=== PATIENT | female | born 1945 | race Caucasian/White ===

== ENCOUNTER 2019-01-09 15:14 | Emergency (ER) | payer MEDICARE, OTHER ==
[~2019-01-09] VITALS: Ht 165.1 cm; Wt 51.4 kg
[~2019-01-09 15:14] MED LIST: ATOR10TA87 PO; CALCIUM PO; CLOP75TA35 PO; CYAN-19 PO; DENO60DI SQ; DICL50TA6 PO; HYDR-4353 PO; IRBE150T51 PO; MEGA RED PO; METO100T7 PO
[2019-01-09 15:37] VITALS: BP 183/69
== END 2019-01-09 16:09 | disposition home or self-care (01) ==
LOC: ER 15:15
DX: S81.812D Laceration without foreign body, left lower leg, subsequent encounter (principal); Z48.00 Encounter for change or removal of nonsurgical wound dressing; Z79.899 Other long term (current) drug therapy; X58.XXXD Exposure to other specified factors, subsequent encounter
CPT/HCPCS: 99281; 99282

== ENCOUNTER 2020-01-29 05:58 | Day surgery (SDC) | payer MEDICARE, OTHER ==
[2020-01-28 10:34] LABS: BASOPHILS % (AUTO) 0.3 % (0-1); EOSINOPHILS # (AUTO) 0.3 X10'3 (0-0.9); EOSINOPHILS % (AUTO) 4.6 % (0-6); HEMATOCRIT 36.6 % (35.0-45.0); HEMOGLOBIN 12.3 g/dl (12.0-16.0); LYMPHOCYTES # (AUTO) 1.7 X10'3 (1.1-4.8); LYMPHOCYTES % (AUTO) 30.3 % (21-51); MEAN CORPUSCULAR HEMOGLOBIN 31.2 PG (27.0-31.0); MEAN CORPUSCULAR HGB CONC 33.6 g/dL (33.0-36.5); MEAN CORPUSCULAR VOLUME 92.8 FL (78-98); MONOCYTES # (AUTO) 0.7 X10'3 (0-0.9); MONOCYTES % (AUTO) 13.1 % (2-12); NEUTROPHILS # (AUTO) 2.9 X10'3 (1.8-7.7); NEUTROPHILS % (AUTO) 51.7 % (42-75); PLATELET COUNT 248 X10'3 (140-440); RED BLOOD COUNT 3.95 X10'6 (4.20-5.60); RED CELL DISTRIBUTION WIDTH 13.4 % (11.5-14.5); WHITE BLOOD COUNT 5.5 X10'3 (4.5-11.0)
[2020-01-28 10:42] LABS: ALBUMIN 3.9 G/DL (3.4-5.0); ANION GAP 10 (8-16); BLOOD UREA NITROGEN 15 MG/DL (7-18); BUN/CREATININE RATIO 18.3 (6.6-38.0); CALCIUM 8.8 MG/DL (8.5-10.1); CHLORIDE 103 MMOL/L (99-107); CREATININE 0.82 MG/DL (0.40-0.90); GLUCOSE 93 MG/DL (70-104); MAGNESIUM 1.9 MG/DL (1.5-2.4); POTASSIUM 3.8 MMOL/L (3.5-5.1); SODIUM 137 MMOL/L (135-145); eGFR 68 ML/MIN
[2020-01-28 10:46] LABS: PARTIAL THROMBOPLASTIN TIME 24 SECONDS (22-32)
[2020-01-29] VITALS (11 sets, daily range): BP systolic 107–160; BP diastolic 55–85
[~2020-01-29] VITALS: Ht 160 cm; Wt 52.1 kg
[~2020-01-29 05:58] MED LIST changes: -CYAN-19 PO; +CYAN-51 PO
[2020-01-29] MEDS ORDERED: ceFAZolin 2gm in dextrose, iso 50 ML IV ONE (06:10)
[2020-01-29] MEDS ORDERED: normal saline 1000ml 1,000 ML IV SCH (06:10)
[2020-01-29] MEDS ORDERED: DABI150C PO (06:33)
[2020-01-29] MEDS ORDERED: OMEP40CA13 PO (06:33)
[2020-01-29] MEDS ORDERED: LOSA100T57 PO (06:33)
[2020-01-29] MEDS ORDERED: midazolam 2 mg/2 ml injection ONE (07:38)
[2020-01-29] MEDS ORDERED: fentaNYL/PF 50MCG/1 ML 2ML syringe ONE (07:39)
[2020-01-29] MEDS ORDERED: ceFAZolin 1000mg inj ONE (07:39)
[2020-01-29] MEDS ORDERED: LIDOcaine 1% W/epiNEPHrine 1:100,000 20ml vial ONE ×2 (07:39→08:16)
[2020-01-29] MEDS ORDERED: iohexol 350 MG/ML 50ML vial IV ONE (08:21)
[2020-01-29] MEDS ORDERED: verapamil 2.5 mg/ml inj IV ONE (08:31)
[2020-01-29] MEDS ORDERED: HYDROcodone/acetaminophen 10/325mg tab PO PRN (09:55)
[2020-01-29] MEDS ORDERED: HYDROcodone/acetaminophen 5mg/325mg tablet PO PRN (09:55)
[2020-01-29] MEDS ORDERED: VANCOMYCIN 1000 MG IV ONE (11:00)
[2020-01-29] MEDS ORDERED: SODIUM CHLORIDE IV ONE (11:00)
--- NOTE | 2020-01-29 11:02 | NUR ---
pt left floor for cxr.
--- NOTE | 2020-01-29 11:11 | NUR ---
Pt returned from CXR. pt complaint of pain 02/10. as she motions to rt shoulder. will bring pain medication as ordered.
== END 2020-01-29 15:10 | disposition home or self-care (01) ==
LOC: SSTAY O 05:58
PROVIDERS: ATTEND Internal Medicine Cardiovascular Disease
DX: I49.5 Sick sinus syndrome (principal); I10 Essential (primary) hypertension; E78.5 Hyperlipidemia, unspecified; I48.0 Paroxysmal atrial fibrillation; F32.9 Major depressive disorder, single episode, unspecified; F41.9 Anxiety disorder, unspecified; I25.10 Atherosclerotic heart disease of native coronary artery without angina pectoris; I34.0 Nonrheumatic mitral (valve) insufficiency; Z86.73 Personal history of transient ischemic attack (TIA), and cerebral infarction without residual deficits; G47.9 Sleep disorder, unspecified; Z79.899 Other long term (current) drug therapy; Z98.890 Other specified postprocedural states; Z90.710 Acquired absence of both cervix and uterus; Z87.891 Personal history of nicotine dependence
CPT/HCPCS: 33208; 36415; 71046; 80048; 83735; 85025; 85610; 85730; 93005; 99152; 99153; C1785; C1894; C1898; J0690; J2250; J3010; J3370; J7030; J7050; Q9967; A4565; A4620; A6258; A6449

== ENCOUNTER 2020-10-06 10:15 | Outpatient (CLI) | payer MEDICARE, OTHER ==
[~2020-10-06 10:15] MED LIST changes: -CLOP75TA35 PO; +DABI150C PO; -DICL50TA6 PO; -IRBE150T51 PO; +LOSA100T57 PO; +OMEP40CA13 PO
== END 2020-10-06 23:59 | disposition home or self-care (01) ==
LOC: RT 10:15
PROVIDERS: ATTEND Physician Assistant
DX: R06.02 Shortness of breath (principal)
CPT/HCPCS: 94010; 94727; 94729

== ENCOUNTER 2024-03-10 07:43 | Day surgery (SDC) | payer MEDICARE, OTHER ==
[2024-03-07 11:12] LABS: BASOPHILS # (AUTO) 0.1 X10'3 (0-0.2); BASOPHILS % (AUTO) 1.1 % (0-1); EOSINOPHILS % (AUTO) 0 % (0-6); LYMPHOCYTES # (AUTO) 1.4 X10'3 (1.1-4.8); LYMPHOCYTES % (AUTO) 21.9 % (21-51); MEAN CORPUSCULAR HEMOGLOBIN 31.6 PG (27.0-31.0); MEAN CORPUSCULAR HGB CONC 33.5 g/dL (33.0-36.5); MEAN CORPUSCULAR VOLUME 94.4 FL (78-98); MEAN PLATELET VOLUME 7.2 FL (7.4-10.4); MONOCYTES # (AUTO) 0.8 X10'3 (0-0.9); PRE OP HEMATOCRIT 38.4 % (35.0-45.0); PRE OP HEMOGLOBIN 12.9 g/dL (12.0-16.0); PRE OP PLATELET COUNT 229 X10'3 (140-440); PRE OP WHITE BLOOD COUNT 6.3 10'3 (4.8-10.8); RED BLOOD COUNT 4.07 X10'6 (4.20-5.60); RED CELL DISTRIBUTION WIDTH 13.5 % (11.5-14.5)
[2024-03-07 11:23] LABS: ALBUMIN 3.8 G/DL (3.4-5.0); ALBUMIN/GLOBULIN RATIO 1.3 (1.1-1.5); ALKALINE PHOSPHATASE 108 IU/L (46-116); BLOOD UREA NITROGEN 15 MG/DL (7-18); BUN/CREATININE RATIO 19.7 (10.0-20.0); CALCIUM 9.3 MG/DL (8.5-10.1); CHLORIDE 97 MMOL/L (99-107); CREATININE 0.76 MG/DL (0.40-0.90); PRE OP ALT 58 U/L (30-65); PRE OP ANION GAP 10 (8-16); PRE OP AST 40 U/L (10-37); PRE OP BILIRUB, TOTAL 0.7 MG/DL (0.0-1.0); PRE OP GLUCOSE 98 MG/DL (70-104); PRE OP POTASSIUM 3.9 MMOL/L (3.4-5.1); PRE OP SODIUM 131 MMOL/L (135-145); TOTAL CARBON DIOXIDE 23.8 MMOL/L (24-32); TOTAL PROTEIN 6.8 G/DL (6.4-8.2); eGFR 73 ML/MIN
[2024-03-10] VITALS (7 sets, daily range): BP systolic 113–184; BP diastolic 55–88; PULSE 60–68; RESP 11–14; TEMP 96.6; O2SAT 96–100
[~2024-03-10] VITALS: Ht 160 cm; Wt 48.6 kg
[2024-03-10] MEDS: cefazolin 2gm/D5W 100mL 100 ML IV ONE (05:30)
[2024-03-10] MEDS: DOCUMENT DATE & TIME OF BETA-BLOCKER PO ONE (05:30)
[~2024-03-10 07:43] MED LIST changes: +AMOX-100 PO; +APIX5TAB3 PO; +BACL5TAB PO; +CALC600T14 PO; -CALCIUM PO; +CHOL10006 PO; +CHOL4PAC17 PO; -CYAN-51 PO; -DABI150C PO; +ESTRADIOL COMPOUND VG; +FLEC50TA PO; +GABA-530 PO; -HYDR-4353 PO; +IRBE150T34 PO; +LIDOcaine 1% 30ml preserv. free vial ONE; +LIDOcaine 2% (20mg/ml) 5ml vial ONE; -LOSA100T57 PO; +MELA3TAB39 PO; +MESA0.374 PO; +METO-411 PO; -METO100T7 PO; +MUPI22OI30 TP; -OMEP40CA13 PO; +RIZA5TAB83 PO
[2024-03-10] MEDS: ringers solution, lacted 1,000 ML IV SCH (09:35)
[2024-03-10] MEDS: famotidine 20mg tablet PO ONE (09:35)
[2024-03-10] MEDS ORDERED: midazolam 1 mg/ML 2ml injection ONE (09:54)
[2024-03-10] MEDS ORDERED: fentaNYL/PF 50MCG/1 ML 2ML syringe ONE (09:54)
[2024-03-10] MEDS ORDERED: triamcinolone acetonide 40mg/ml inj ONE (10:18)
[2024-03-10] MEDS ORDERED: BUPIVAcaine/PF 2.5mg/ml (0.25%) 10ml vial ONE (10:56)
[2024-03-10] MEDS: LIDOcaine 2% (20mg/ml) 5ml vial ONE (11:27)
[2024-03-10] MEDS: triamcinolone acetonide 40mg/ml inj ONE (11:27)
[2024-03-10] MEDS: BUPIVAcaine/PF 2.5mg/ml (0.25%) 10ml vial ONE (11:27)
== END 2024-03-10 12:09 | disposition home or self-care (01) ==
LOC: PAS 07:43
PROVIDERS: ATTEND Orthopaedic Surgery Hand Surgery
DX: G56.01 Carpal tunnel syndrome, right upper limb (principal); M18.11 Unilateral primary osteoarthritis of first carpometacarpal joint, right hand; I10 Essential (primary) hypertension; E78.5 Hyperlipidemia, unspecified; I48.91 Unspecified atrial fibrillation; I20.9 Angina pectoris, unspecified; M81.0 Age-related osteoporosis without current pathological fracture; G43.909 Migraine, unspecified, not intractable, without status migrainosus; I25.2 Old myocardial infarction; M19.90 Unspecified osteoarthritis, unspecified site; Z87.891 Personal history of nicotine dependence; Z79.01 Long term (current) use of anticoagulants; Z79.899 Other long term (current) drug therapy; Z90.49 Acquired absence of other specified parts of digestive tract; Z90.710 Acquired absence of both cervix and uterus; Z90.89 Acquired absence of other organs; Z96.611 Presence of right artificial shoulder joint; Z98.890 Other specified postprocedural states
CPT/HCPCS: 20600; 36415; 64721; 80053; 82948; 85025; 93005; A4215; A6222; A6449; J0690; J2001; J2250; J3010; J3301; J3490; J7030; J7120; Z7506; Z7512

== ENCOUNTER 2024-12-22 17:11 | Emergency (ER) | payer MEDICARE, OTHER ==
[~2024-12-22] VITALS: Ht 160 cm; Wt 46.8 kg
[~2024-12-22 17:11] MED LIST changes: -AMOX-100 PO; -LIDOcaine 1% 30ml preserv. free vial ONE; -LIDOcaine 2% (20mg/ml) 5ml vial ONE
[2024-12-22 17:57] LABS: BASOPHILS # (AUTO) 0.1 X10'3 (0-0.2); BASOPHILS % (AUTO) 1.1 % (0-1); EOSINOPHILS % (AUTO) 0 % (0-6); HEMATOCRIT 37.5 % (35.0-45.0); HEMOGLOBIN 12.6 g/dl (12.0-16.0); LYMPHOCYTES # (AUTO) 1.6 X10'3 (1.1-4.8); LYMPHOCYTES % (AUTO) 24.2 % (21-51); MEAN CORPUSCULAR HEMOGLOBIN 31.3 PG (27.0-31.0); MEAN CORPUSCULAR HGB CONC 33.5 g/dL (33.0-36.5); MEAN CORPUSCULAR VOLUME 93.4 FL (78-98); MEAN PLATELET VOLUME 7.5 FL (7.4-10.4); MONOCYTES % (AUTO) 14.4 % (2-12); NEUTROPHILS # (AUTO) 4.1 X10'3 (1.8-7.7); NEUTROPHILS % (AUTO) 60.3 % (42-75); PLATELET COUNT 238 X10'3 (140-440); RED BLOOD COUNT 4.02 X10'6 (4.20-5.60); RED CELL DISTRIBUTION WIDTH 14.1 % (11.5-14.5); WHITE BLOOD COUNT 6.7 X10'3 (4.5-11.0)
[2024-12-22 18:14] LABS: ALBUMIN 3.9 G/DL (3.4-5.0); ANION GAP 11 (8-16); BLOOD UREA NITROGEN 15 MG/DL (7-18); BUN/CREATININE RATIO 21.1 (10.0-20.0); CHLORIDE 102 MMOL/L (99-107); CREATININE 0.71 MG/DL (0.40-0.90); GLUCOSE 87 MG/DL (70-104); POTASSIUM 3.8 MMOL/L (3.5-5.1); PRO BRAIN NATRIURETIC PEPTIDE 339 PG/ML (0-450); SODIUM 136 MMOL/L (135-145); TOTAL CARBON DIOXIDE 22.7 MMOL/L (24-32); eCRCL 47 ML/MIN; eGFR 79 ML/MIN
[2024-12-22 18:51] LABS: D-DIMER 0.36 MG/L FEU (0-0.50); INR 1.1 INR
[2024-12-22 20:47] VITALS: BP 190/90; PULSE 81; RESP 16; TEMP 97.4; O2SAT 100
== END 2024-12-22 20:54 | disposition home or self-care (01) ==
LOC: ER 17:11
DX: R60.0 Localized edema (principal); I48.91 Unspecified atrial fibrillation
CPT/HCPCS: 36415; 80048; 83880; 85025; 85379; 85610; 99283

== ENCOUNTER 2025-03-05 11:34 | Day surgery (SDC) | payer MEDICARE, OTHER ==
--- NOTE | 2025-03-02 15:18 | ELECTROCARDIOGRAPH REPORT ---
[facility] Test Date: 2025-03-02 Test Time: 15:14:09 Pat Name: HAL MUÑOZ Department: [facility]-PRE-OP Patient ID: [facility]-[id number] Room: Gender: F Electronics Engineering Manager: LEON : 1945 Requested By: MARQUES LOU Order Number: [id number] Reading MD: Dr. HONG Saunders Measurements Intervals [place] Rate: 69 P: 0 [place]: 179 QRS: 56 QRSD: 102 T: 56 QT: 408 QTc: 437 Interpretive Statements Atrial-paced complexes Nonspecific repol abnormality, diffuse leads Electronically Signed On 03-02-2025 17:57:[address] HONG Saunders Please click the below link to view image of tracing.
[2025-03-02 15:22] LABS: MEAN PLATELET VOLUME 6.9 FL (7.4-10.4); PRE OP HEMATOCRIT 35.5 % (35.0-45.0); PRE OP HEMOGLOBIN 12.2 g/dL (12.0-16.0); PRE OP PLATELET COUNT 215 X10'3 (140-440); PRE OP WHITE BLOOD COUNT 6.5 10'3 (4.8-10.8); RED CELL DISTRIBUTION WIDTH 13.7 % (11.5-14.5)
[2025-03-02 15:37] LABS: CREATININE 0.89 MG/DL (0.40-0.90); PRE OP ALT 26 U/L (30-65); PRE OP ANION GAP 8 (8-16); PRE OP AST 26 U/L (10-37); PRE OP BILIRUB, TOTAL 0.6 MG/DL (0.0-1.0); PRE OP GLUCOSE 82 MG/DL (70-104); PRE OP POTASSIUM 3.6 MMOL/L (3.4-5.1); PRE OP SODIUM 137 MMOL/L (135-145); TOTAL CARBON DIOXIDE 25.9 MMOL/L (24-32); eGFR 61 ML/MIN
[2025-03-02 15:55] LABS: LYMPHOCYTES % (MANUAL) 24.0 % (21-51); MONOCYTES % (MANUAL) 17.0 % (2-12); NEUTROPHILS % (MANUAL) 59.0 % (42-75); PLATELET ESTIMATE NORMAL
[~2025-03-05] VITALS: Ht 160 cm; Wt 46.7 kg
[2025-03-05] VITALS (21 sets, daily range): BP systolic 130–178; BP diastolic 58–82; PULSE 60–73; RESP 10–18; TEMP 96.8; O2SAT 97–100
[2025-03-05] MEDS: ceFAZolin 2gm/dext,iso 50mL 50 ML IV ONE (05:30)
[~2025-03-05 11:34] MED LIST changes: +DOCUMENT DATE & TIME OF BETA-BLOCKER PO ONE; -MEGA RED PO; -RIZA5TAB83 PO
[2025-03-05] MEDS: ringers solution, lacted 1,000 ML IV SCH (12:23)
[2025-03-05] MEDS ORDERED: HYDROmorphone/PF 0.2 MG/ML SYRINGE IV PRN (13:00)
[2025-03-05] MEDS ORDERED: morphine 4 MG/ML inj SYRINge IV PRN (13:00)
[2025-03-05] MEDS ORDERED: labetalol 20mg/4ml (5mg/ml) syringe IV PRN (13:00)
[2025-03-05] MEDS ORDERED: ringers solution, lacted 1,000 ML IV SCH (13:00)
[2025-03-05] MEDS ORDERED: ondansetron/PF 4mg/2ml inj IV PRN (13:00)
[2025-03-05] MEDS ORDERED: BUPIVAcaine 2.5mg/ml inj 50ml vial (contains preservative) ONE (14:02)
[2025-03-05] MEDS ORDERED: LIDOcaine 1% 30ml preserv. free vial ONE (14:03)
[2025-03-05] MEDS ORDERED: midazolam 1 mg/ML 2ml injection ONE (14:26)
[2025-03-05] MEDS ORDERED: fentaNYL /PF 50mcg/ml 5ml ampule ONE (14:27)
[2025-03-05] MEDS ORDERED: dexamethasone sod phosphate 4mg/ml inj. ONE (14:35)
[2025-03-05] MEDS ORDERED: ondansetron/PF 4mg/2ml inj ONE (14:35)
[2025-03-05] MEDS ORDERED: LIDOcaine 1%/PF 5ML 10 MG/ML VIAL ONE (14:35)
[2025-03-05] MEDS ORDERED: rocuronium 10mg/ml inj IV ONE (14:35)
[2025-03-05] MEDS ORDERED: propofol inj 20 ML IV ONE (14:35)
[2025-03-05] MEDS: BUPIVAcaine/PF 2.5 mg/ml (0.25%) 30ml vial IJ ONE (14:47)
[2025-03-05] MEDS ORDERED: glycopyrrolate 0.2mg/ml inj ONE (15:53)
--- NOTE | 2025-03-05 16:34 | OPERATIVE REPORT ---
Operative Report Providers to CC: THOM LOU MD ~ Date of Procedure: Mar 05, 2025 Pre-Operative Diagnosis: Bilateral inguinal hernias Post-Operative Diagnosis Bilateral inguinal hernia Procedure Performed Robotic assisted, laparoscopic bilateral inguinal hernia repairs with mesh Surgeon: Thom Lou MD FACS Bench Grinder None Anesthesiologist: Ash Mae Type of Anesthesia: General Findings: Right-sided femoral and indirect inguinal hernia Left-sided femoral and indirect inguinal hernia Small bilateral obturator defects Complications None Prosthetics\Implants used: Bilateral median Dextile mesh Estimated Blood Loss: Minimal Specimen Removed: None Description of Procedure: Patient was brought to the operating room and identified by the nursing staff and the attending physician. Patient was placed supine and general anesthesia was induced. The patient's abdomen was prepped and draped in the standard juan rile fashion. Preoperative antibiotics were given. Supraumbilical, midline incision was made to accommodate a 12 mm Qureshi port. Qureshi technique was used to gain access into the abdomen and the port was anchored to the fascia with 0 Vicryl suture. Abdomen was insufflated without incident. Laparoscope was inserted and the pelvis examined. Patient was placed in Trendelenburg position. Secondary, 8.5 mm robotic trochars were then placed in the right lateral left lateral upper abdomen just above the umbilical line. These were placed under laparoscopic guidance. Local anesthetic was infiltrated prior to their insertion. The da Gloria robotic arm was docked to the patient. Instruments were guided intra-abdominally under laparoscopic visualization. Peritoneal rent was created starting at the left anterior superior iliac spine and carried across the anterior abdominal wall to the contralateral anterior superior iliac spine. The peritoneal flap was created and carried down to the symphysis pubis. Dissection was carried out bilaterally. On the right there were both indirect and femoral hernias. These were relatively small in size. On the left similarly, there were indirect and femoral hernias. Both sides had small obturator defects in the herniated fat on the right and small amount of bladder on the left were reduced. Peritoneum was dissected away from the round ligaments and out laterally to accommodate 2 separate pieces of median Dextile mesh. Bilateral critical views of the myopectineal orifice were obtained. Mesh and suture was passed into the abdomen. Bilateral mesh was placed covering potential obturator, femoral, direct, and indirect hernia spaces. Mesh was anchored at Omega's ligament, rectus muscle in the midline, and out laterally just anterior to the anterior superior iliac spine. Mesh laid without wrinkles or folds. Peritoneal rent was then reapproximated with running, absorbable 2/0 V-lock suture. [place] were retrieved. Abdomen was allowed to desufflate after instruments removed and da Gloria robotic arm undocked from the patient. Umbilical port was removed as were the secondary trochars. The fascia at the umbilical port site was closed with 0 Vicryl sutures. Skin was closed at all sites with 4-0 Monocryl sutures in a subcuticular fashion. Sterile dressings were applied. Patient was awakened and taken to the postanesthesia care unit in stable condition. Counts repoted as correct: Yes THOM LOU MD Mar 05, 2025 16:34
[2025-03-05] MEDS: hydrALAZINE 20mg/ml inj. IV PRN (16:45)
[2025-03-05] MEDS: acetaminophen 1,000mg/100ml IV 100 ML IV PRN (16:49)
[2025-03-05] MEDS: HYDROcodone/acetaminophen 5mg/325mg tablet PO PRN (17:18)
[2025-03-05] MEDS: HYDROmorphone/PF 0.2 MG/ML SYRINGE IV PRN (18:32)
== END 2025-03-05 20:17 | disposition home or self-care (01) ==
LOC: PAS 11:34
PROVIDERS: ATTEND Surgery
DX: K40.20 Bilateral inguinal hernia, without obstruction or gangrene, not specified as recurrent (principal); I48.91 Unspecified atrial fibrillation; I49.5 Sick sinus syndrome; E78.5 Hyperlipidemia, unspecified; Z87.891 Personal history of nicotine dependence; Z98.890 Other specified postprocedural states; G43.909 Migraine, unspecified, not intractable, without status migrainosus; Z79.899 Other long term (current) drug therapy; Z95.0 Presence of cardiac pacemaker; Z90.710 Acquired absence of both cervix and uterus; Z82.49 Family history of ischemic heart disease and other diseases of the circulatory system
CPT/HCPCS: 36415; 49650; 80053; 82948; 85025; 93005; A4215; A4618; C1781; J0131; J0360; J1100; J1171; J2003; J2250; J2405; J2704; J2710; J3010; J3490; J7030; J7120; Z7506; Z7508; Z7512; Z7610; 85007

== ENCOUNTER 2025-08-14 11:36 | Emergency (ER) | payer MEDICARE, OTHER ==
[~2025-08-14] VITALS: Ht 160 cm; Wt 45.5 kg
[~2025-08-14 11:36] MED LIST changes: -DOCUMENT DATE & TIME OF BETA-BLOCKER PO ONE
[2025-08-14 11:53] VITALS: TEMP 98
--- NOTE | 2025-08-14 12:44 | Physician Documentation ---
History of Present Illness ~ Chief Complaint: Mechanical Fall Stated Complaint: FALL Time Seen by MD: 12:19 Primary Medical Doctor: TERRA BARRIOS The patient is an 79-year-old female with a history of atrial fibrillation (takes Eliquis) who sustained a mechanical fall yesterday evening about 7:00 p.m. on a wet floor. She landed face down. There was no loss of consciousness. She remains ambulatory. Medication Reconciliation Allergies: Coded Allergies: No Known Allergies (Unverified , 08/14/25) Scheduled Apixaban (Eliquis), 1 TAB PO BID, (Reported) Atorvastatin Calcium* (Lipitor*), 10 MG PO HS, (Reported) Calcium Carbonate (Calcium), 2 TAB PO DAILY, (Reported) Cholecalciferol (Vitamin D), 1 CAP PO DAILY, (Reported) Cholestyramine/Aspartame (Cholestyramine Light Packet), 1 PACKET PO QPM, ( Reported) Denosumab (Prolia), 1 ML SQ [id number], (Reported) Flecainide Acetate (Flecainide Acetate), 1 TAB PO BID, (Reported) Gabapentin (Gabapentin), 2 CAP PO HS, (Reported) Irbesartan (Irbesartan), 1 TAB PO DAILY, (Reported) Melatonin (Melatonin), 1 TAB PO HS, (Reported) Mesalamine (Mesalamine ER), 4 CAP PO QAM, (Reported) Metoprolol Succinate (Metoprolol Succinate), 1.5 TAB PO BID, (Reported) [Estradiol Compound], VG [id number], (Reported) Scheduled PRN Baclofen (Baclofen), 1 TAB PO TID PRN for muscle spasm, (Reported) Mupirocin* (Bactroban*), 1 APPLIC TP DAILY PRN for ., (Reported) Review of Systems ROS Constitutional: Denies chills, fatigue, fever, weight gain or weight loss. HEENT: Facial trauma. Respiratory: Denies cough, shortness of breath or wheezing. Cardiovascular: Denies chest pain, pain while walking (claudication), edema or palpitations. Gastrointestinal: Denies abdominal pain, blood in stool, constipation, diarrhea, heartburn, loss of appetite, nausea or vomiting. Genitourinary: Denies painful urination (dysuria), excessive amount of urine (polyuria) or urinary frequency. Metabolic/Endocrine: Denies cold intolerance, heat intolerance, excessive thirst (polydipsia) or excessive hunger (polyphagia). Neurological: Denies dizziness, extremity numbness, extremity weakness, headaches, seizures or tremors. Psychiatric: Denies anxiety or depression. Integumentary: Denies breast discharge, breast lump, hives, mole change(s), rash or skin lesion. Musculoskeletal: Denies back pain, joint pain, joint swelling or neck pain. Hematologic: Denies easily bleeding, easily bruises, lymphedema or issues with blood clots. Immunologic: Denies food allergies or seasonal allergies. Physical Exam Vital Signs: Temperature: 98.0, Source: Temporal, Heart Rate: 70, Respiratory Rate: 18, Pulse Oximetry: 100, Weight: 45.450 Oxygen Flow Rate: 0 Physical Exam Physical Exam Vitals and nursing note reviewed. Constitutional: General: Patient is awake, alert, oriented x 4 in no acute distress and well appearing. Speech is clear and lucid. Appearance: Normal appearance. Patient is not ill-appearing, toxic-appearing or diaphoretic. HENT: Head: Normocephalic, bruising and swelling of nose and surrounding area. No septal hematoma. Mouth/Throat: Mouth: Mucous membranes are moist. Pharynx: Oropharynx is clear. Eyes: General: No scleral icterus. Extraocular Movements: Extraocular movements intact. Pupils: Pupils are equal, round, and reactive to light. Neck: Supple, no Kernig or Brudzinski sign. Cardiovascular: Rate and Rhythm: Normal rate and regular rhythm. Heart sounds: No murmur heard. Pulmonary: Effort: No respiratory distress. Breath sounds: No wheezing, rhonchi or rales. Abdominal: General: There is no distension. Palpations: There is no fluid wave, hepatomegaly or mass. Tenderness: There is no abdominal tenderness. There is no guarding. Musculoskeletal: General: No swelling or deformity. Skin: Coloration: Skin is not jaundiced. Findings: No erythema or rash. Neurological: Mental Status: Patient is alert. Progress Results/Orders Results/Orders Vital Signs 08/14/25 11:53 Temp 98.0 Pulse 70 Resp 18 Pulse Ox 100 O2 Flow Rate 0 Laboratory Tests Test 08/14/25 12:40 White Blood Count 7.0 Red Blood Count 4.04 L Hemoglobin 12.7 Hematocrit 37.8 Mean Corpuscular Volume 93.7 Mean Corpuscular Hemoglobin 31.5 H Mean Corpuscular Hemoglobin Concent 33.6 Red Cell Distribution Width 13.7 Platelet Count 233 Mean Platelet Volume 7.7 Neutrophils (%) (Auto) 62.5 Lymphocytes (%) (Auto) 23.5 Monocytes (%) (Auto) 13.1 H Eosinophils (%) (Auto) 0 Basophils (%) (Auto) 0.9 Neutrophils # (Auto) 4.3 Lymphocytes # (Auto) 1.6 Monocytes # (Auto) 0.9 Eosinophils # (Auto) 0.0 Basophils # (Auto) 0.1 CBC Comment Chemistry Comments Medical Decision Making Additional information obtaine: N/A Findings Bilateral nondisplaced nasal bone fractures with overlying swelling. Differential Dx:Considerations: Include: Closed head injury, Fracture(s), Cerebral contusion, Spine injury, Abrasion(s), Contusion(s); Unlikely: Cardiac injury, Intraabdominal injury, Pneumothorax, Pulmonary contusion, Tracheal injury, Urological injury, Vascular injury, Foreign body(s), Hematoma(s), Laceration(s), Encephalopathy, Other Departure Disposition: 01 HOME / SELF CARE / HOMELESS Impression: Primary Impression: Nasal bone fractures Additional Instructions: You have been evaluated for injuries after a fall. You do have two nondisplaced nasal bone fractures that should not require any surgical intervention. Nevertheless, please follow-up with your PCP within the next week. Please apply ice to the area today and tomorrow. Return here for worsening symptoms or new/unusual symptoms. Referrals: NO PRIMARY CARE PROVIDER (PCP) Signature Scribe Signature: . Attestation: . LESTER RAJPUT MD Aug 14, 2025 12:44
--- NOTE | 2025-08-14 12:44 | RADIOLOGY REPORT ---
CLINICAL INFORMATION: Trauma . TECHNIQUE: Axial imaging was obtained through the brain without contrast. Coronal and sagittal reformatted images were obtained, reviewed, and stored. Images were reviewed in brain and bone windows. All CT scans at this medical facility are performed using dose modulation techniques as appropriate to a performed exam including the following: Automated exposure control was utilized; adjustment of the MA and/or KV according to patient size; and use of iterative reconstruction technique. CTDIvol = 47.33 mGy DLP = 772.96 mGy-cm COMPARISON: None FINDINGS: There is no acute intracranial hemorrhage. No mass effect or midline shift. Scattered areas of hypoattenuation are seen in the periventricular and subcortical white matter, which are nonspecific but most likely sequelae of small vessel ischemic disease. The ventricles and sulci are within normal limits in size for age. Basal cisterns are patent. The calvarium is unremarkable. Paranasal sinuses and mastoid air cells are clear. IMPRESSION: No CT evidence of acute intracranial abnormality.
--- NOTE | 2025-08-14 12:53 | RADIOLOGY REPORT ---
CLINICAL HISTORY: Trauma, pain TECHNIQUE: CT of the cervical spine was performed without intravenous contrast. This exam was performed according to our departmental dose optimization program. Up-to-date CT equipment and radiation dose reduction techniques are utilized as appropriate. WID: COMPARISON: None FINDINGS: There is reversal of the normal cervical lordosis. There is 3 mm of anterolisthesis of C2 on C3. There is minimal stepwise retrolisthesis from C3 to C6 with approximately 2 mm of retrolisthesis of C5 on C6. There is no acute fracture or subluxation. There is no prevertebral soft tissue swelling. Moderate multilevel degenerative changes of the cervical spine with disc height loss, marginal osteophytosis, uncovertebral hypertrophy, and facet arthrosis. This results mild right neural foraminal narrowing at C2-C3 without significant spinal stenosis, moderate left and mild right neural foraminal narrowing at C3- C4 with mild spinal canal stenosis, mild wmun-kgwozao-oroe-right neural foraminal narrowing at C4-C5 without spinal canal stenosis, severe bilateral neural foraminal narrowing at C5-C6 with moderate spinal canal narrowing, severe bilateral neural foraminal narrowing at C6-C7 with mild spinal canal stenosis, and severe bilateral neural foraminal narrowing at C7-T1. The visualized airway is patent. Cervical soft tissues unremarkable. No enlarged cervical lymph nodes by CT criteria. Visualized lung apex is unremarkable. Bulky calcifications of the bilateral carotid siphons. Partially imaged left chest wall pacer. IMPRESSION: No acute osseous cervical spine injury. Multilevel discogenic and spondylotic degenerative changes resulting in high- grade neural foraminal narrowing bilaterally as described above in the detail.
--- NOTE | 2025-08-14 12:56 | RADIOLOGY REPORT ---
CLINICAL HISTORY: Trauma the pain TECHNIQUE: CT exam of the facial bones was performed without intravenous contrast. This exam was performed according to our departmental dose optimization program. Up-to-date CT equipment and radiation dose reduction techniques are utilized as appropriate. COMPARISON: None FINDINGS: There is a nondisplaced [id number]-[id number]-zmuy-right bilateral nasal bone fracture with overlying soft tissue swelling. There is mild right septal nasal deviation. No additional fractures identified. The paranasal sinuses and intraorbital structures are unremarkable. Status post bilateral cataract lens replacement. Streak artifact secondary to dental amalgam. Temporomandibular joints are within normal limits. IMPRESSION: Nondisplaced bilateral nasal bone fractures with overlying soft tissue swelling
[2025-08-14 13:00] LABS: MEAN PLATELET VOLUME 7.7 FL (7.4-10.4); RED CELL DISTRIBUTION WIDTH 13.7 % (11.5-14.5)
[2025-08-14 13:16] LABS: CREATININE 0.68 MG/DL (0.40-0.90); TOTAL CARBON DIOXIDE 24.4 MMOL/L (24-32); eCRCL 47 ML/MIN; eGFR 83 ML/MIN
[2025-08-14] MEDS: TETanus/Pertussis (Acell)/Diphther VAC/PF (Tdap-Adult) 0.5ml syringe IMVAC ONE (13:43)
[2025-08-14 13:45] VITALS: BP 173/83; PULSE 70; RESP 18; O2SAT 100
== END 2025-08-14 13:51 | disposition home or self-care (01) ==
LOC: ER 11:36
DX: S02.2XXA Fracture of nasal bones, initial encounter for closed fracture (principal); I48.91 Unspecified atrial fibrillation; W19.XXXA Unspecified fall, initial encounter; Y93.89 Activity, other specified; Y92.89 Other specified places as the place of occurrence of the external cause; Y99.8 Other external cause status
CPT/HCPCS: 36415; 70450; 70486; 72125; 80053; 85025; 90715; 99285; G0008; 90471